=== PATIENT | female | born 1990 | race Caucasian/White ===

== ENCOUNTER 2024-08-27 23:45 | Outpatient (REF) | payer SELFPAY ==
[2024-08-27 23:46] VITALS: BP 112/80; PULSE 113; RESP 16; TEMP 37; O2SAT 99; BMI 21.7
[2024-08-28 02:51] LABS: HIV Nonreactive (Nonreactive); Hepatitis B Surface Antibody REAC; Hepatitis B Surface Antigen Nonreactive (Nonreactive); Hepatitis C Antibody Nonreactive (Nonreactive)
--- NOTE | 2024-08-28 03:23 | ED.RN ---
Pt left on tracker due to waiting for labs and Dr Caceres being able to talk to patient to decide plan of care.
--- NOTE | 2024-08-28 03:56 | EX.ED.DYSGE1 ---
HPI History of Present Illness Chief Complaint: REFERRED Informant: patient Narrative Narrative: Patient is a 34-year-old female with no significant past medical history. She was at work this evening attempting to draw blood when the patient jerked and she has not stuck herself with the blood drawl needle. She reports she was wearing gloves at the time and that the needle only made a small poke into her finger. She states that she washed it well and has no history of immunosuppression but with the body fluid exposure presents for evaluation [facility] Medical History (Updated 08/28/24 @ 03:[address] Garry Caceres, DO) Bile reflux gastritis Allergy/AdvReac Type Severity Reaction Status Date / Time No Known Allergies Allergy Verified 08/27/24 23:48 Social History Smoking Status: Never smoker ROS ROS ED Constitutional Constitutional ED: Denies chills or fever(s) Cardiovascular Cardiovascular: Denies chest pain Respiratory/Chest Respiratory/Chest: Denies cough or dyspnea Musculoskeletal Musculoskeletal: Reports other Details: Positive finger pain Integumentary Reports Abrasions and other Details: Positive needle stick ; Denies rash Neurologic Neurologic: Denies headache(s), paresthesias or weakness Hematologic/Lymphatic Hematologic/Lymphatic: Denies easy bleeding or easy bruising EXAM Physical Exam Const Vital Signs: 08/27/24 23:46 08/28/24 00:44 Temperature 98.6 F Temperature Source Temporal Pulse Rate 113 H Respiratory Rate 16 Respiratory Pattern Normal Blood Pressure 112/80 Blood Pressure Mean 90 Pulse Ox 99 Oxygen Delivery Method Room Air Positive well nourished and well developed General Appearance ED: well developed HEENT HEENT Narrative: Normocephalic atraumatic Eyes PERRL and EOMs intact bilaterally Neck supple Resp normal respiratory effort and clear to auscultation bilaterally Cardio regular rate and regular rhythm Extremity Extremity Narrative: Bilateral upper extremities are neurovascularly intact. Patient has a small less than half centimeter superficial abrasion consistent with report of needlestick injury. There is no active bleeding or signs of erythema or warmth or soft tissue swelling. No retained foreign body Neuro oriented x3, CN's II-XII intact bilaterally and no sensory deficits noted Sensorium / Orientation: alert Motor Exam: strength 5/5 throughout Psych mental status grossly normal Skin Skin Narrative: Superficial changes as documented above MDM MDM MDM Narrative Medical decision making narrative: Patient had a superficial needlestick injury with blood exposure. She is not immunosuppressed and she has no signs of infection or obvious ligamentous tendon or bony injury. However because of concern for blood-borne infection passing from the source to the patient rapid HIV and hepatitis screening was performed. The patient's hepatitis B antibody is positive consistent with vaccination the remainder of the labs are negative. The source patient was also negative. Based on the needlestick injury the chance for patient developing infection is extremely low less than 1%. As the source patient is negative we discussed risks and benefits of antiviral therapy at this time. As the chance for patient developing an infection is less than 1% and the source patient is negative on rapid testing patient does not want to undergo treatment with antivirals. As there is no signs of acute infection ligamentous or tendon injury there is no need for further workup and she is otherwise safe for discharge. History & Record Review Discussion w/independent historian: Patient Lab Data Attestation: I reviewed the patient's lab results. 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
== END 2024-08-28 04:31 | disposition home or self-care (01) ==
LOC: EDREF 23:45
PROVIDERS: PCP Family Medicine; Visit Provider Emergency Medicine
DX: S61.239A Puncture wound without foreign body of unspecified finger without damage to nail, initial encounter (principal); W46.0XXA Contact with hypodermic needle, initial encounter; Z77.21 Contact with and (suspected) exposure to potentially hazardous body fluids
CPT/HCPCS: 86703; 86706; 86803; 87340